=== PATIENT | female | born 1990 | race Hispanic/Latino ===

== ENCOUNTER 2019-12-10 12:53 | Emergency (ER) | payer MEDICAID ==
[~2019-12-10 12:53] MED LIST: LORA2TAB2 PO
== END 2019-12-10 13:32 | disposition home or self-care (01) ==
LOC: EDH 12:53
DX: F41.9 Anxiety disorder, unspecified (principal); Z04.1 Encounter for examination and observation following transport accident; Z88.1 Allergy status to other antibiotic agents; V69.09XA Driver of heavy transport vehicle injured in collision with other motor vehicles in nontraffic accident, initial encounter; Y93.89 Activity, other specified; Y92.89 Other specified places as the place of occurrence of the external cause; Y99.8 Other external cause status

== ENCOUNTER 2021-03-24 01:58 | Emergency (ER) | payer MEDICAID ==
[~2021-03-24] VITALS: Ht 152.4 cm; Wt 74.8 kg
[2021-03-24 02:28] LABS: APPEARANCE,URINE Cloudy (CLEAR); BILIRUBIN,URINE Negative (NEGATIVE); COLOR,URINE Yellow (YELLOW); GLUCOSE, URINE (UA) Negative (NEGATIVE); KETONES,URINE Negative (NEGATIVE); LEUKOCYTE ESTERASE ,URINE Trace (NEGATIVE); NITRATE,URINE Positive (NEGATIVE); OCCULT BLOOD,URINE Negative (NEGATIVE); PROTEIN,URINE Trace mg/dL (NEGATIVE)
[2021-03-24 02:30] LABS: HCG,QUAL RESULT NEGATIVE (NEGATIVE)
[2021-03-24 02:38] LABS: BACTERIA,URINE Many /HPF (None Seen); RBC,URINE 0-1 /HPF (0-1)
[2021-03-24 03:20] VITALS: BP 118/74
[2021-03-24] MEDS ORDERED: FAMO20TA8 PO (03:28)
[2021-03-24] MEDS ORDERED: ACET-66 PO (03:28)
[2021-03-24] MEDS ORDERED: FLUT16H NASAL (03:28)
== END 2021-03-24 03:43 | disposition home or self-care (01) ==
LOC: EDH 01:58
DX: U07.1 COVID-19 (principal); J45.909 Unspecified asthma, uncomplicated; Z79.899 Other long term (current) drug therapy; Z90.49 Acquired absence of other specified parts of digestive tract
CPT/HCPCS: 81001; 81025; 87077; 87088; 87186; 87635; 87804 ×2; 87880; 99283; C9803

== ENCOUNTER 2021-10-13 02:25 | Emergency (ER) | payer MEDICAID ==
[~2021-10-13] VITALS: Ht 152.4 cm; Wt 86.2 kg
[~2021-10-13 02:25] MED LIST changes: +ACET-66 PO; +FAMO20TA8 PO; +FLUT16H NASAL
[2021-10-13] MEDS ORDERED: DiphenhydrAMINE HCL 50 MG/ML VIAL IV ONE ×2 (03:00→04:30)
[2021-10-13] MEDS ORDERED: ONDANSETRON 4MG INJ IVP ONE (03:00)
[2021-10-13] MEDS ORDERED: 0.9%NACL 1000ML 1,000 ML IV ONE (03:00)
[2021-10-13 03:32] LABS: BASOPHILS % (AUTO) 0.4 % (0.0-5.0); EOSINOPHILS % (AUTO) 2.3 % (0.0-8.0); HEMATOCRIT 45.2 % (36-48); LYMPHOCYTES % (AUTO) 14.9 % (21.0-51.0); MEAN CORPUSCULAR HEMOGLOBIN 32.2 pg (27.0-33.0); MEAN CORPUSCULAR HGB CONC 33.6 g/dL (32.0-36.0); MEAN CORPUSCULAR VOLUME 95.8 fL (79-99); MONOCYTES % (AUTO) 12.7 % (3.0-13.0); NEUTROPHILS % (AUTO) 69.1 % (40.0-77.0); PLATELET COUNT (AUTO) 165 K/uL (130-400); RED BLOOD CELL COUNT(AUTO) 4.72 MIL/uL (4.00-5.50); RED CELL DISTRIBUTION WIDTH 11.7 % (11.0-15.5); WHITE BLOOD COUNT (AUTO) 7.8 K/uL (4.8-10.8)
[2021-10-13 03:41] LABS: APPEARANCE,URINE CLEAR (CLEAR); BILIRUBIN,URINE NEGATIVE (NEGATIVE); COLOR,URINE YELLOW (YELLOW); GLUCOSE, URINE (UA) NEGATIVE (NEGATIVE); KETONES,URINE NEGATIVE (NEGATIVE); LEUKOCYTE ESTERASE ,URINE NEGATIVE (NEGATIVE); NITRATE,URINE POSITIVE (NEGATIVE); OCCULT BLOOD,URINE SMALL (NEGATIVE); PROTEIN,URINE NEGATIVE (NEGATIVE); UROBILINOGEN,URINE 0.2 mg/dL (0.2-1.0)
[2021-10-13 03:42] LABS: CREATININE 0.9 mg/dL (0.5-1.5); POTASSIUM 3.9 mmol/L (3.5-5.1)
[2021-10-13 03:47] LABS: ALBUMIN 3.7 g/dL (3.5-5.0); TOTAL PROTEIN, SERUM 7.2 g/dL (6.0-8.3)
[2021-10-13 03:49] LABS: BACTERIA,URINE Many /HPF (None Seen); CALCIUM OXALATE CRYSTALS,UR Few /LPF (None Seen); MUCUS,URINE Many LPF (None Seen); RBC,URINE None Seen /HPF (0-1); SQUAMOUS EPITHELIAL CELL,UR Few /HPF (0-2)
[2021-10-13 03:50] LABS: HCG,QUALITATIVE URINE NEGATIVE (NEGATIVE)
[2021-10-13] MEDS ORDERED: ACETAMINOPHEN 500 MG TABLET ONE (04:14)
[2021-10-13 04:29] VITALS: BP 116/81
[2021-10-13] MEDS ORDERED: ACETAMINOPHEN 500 MG TABLET PO ONE (04:30)
[2021-10-13] MEDS ORDERED: NITROFURANTOIN MONOHYD/M-CRYST 100 MG CAPSULE PO ONE (04:30)
[2021-10-13] MEDS ORDERED: ONDA4TAB10 PO (04:36)
[2021-10-13] MEDS ORDERED: MACR100 PO (04:36)
== END 2021-10-13 05:00 | disposition home or self-care (01) ==
LOC: EDH 02:25
DX: U07.1 COVID-19 (principal); N39.0 Urinary tract infection, site not specified; E86.9 Volume depletion, unspecified; J45.909 Unspecified asthma, uncomplicated
CPT/HCPCS: 36415; 80053; 81001; 81025; 85025; 87077; 87088; 87186; 87635; 87804; 87880; 96361; 96374; 96375; 96376; C9803; J1200; J2405; J7030

== ENCOUNTER 2021-10-18 03:07 | Emergency (ER) | payer MEDICAID ==
[~2021-10-18] VITALS: Ht 149.9 cm; Wt 85.7 kg
[~2021-10-18 03:07] MED LIST changes: +MACR100 PO; +ONDA4TAB10 PO
[2021-10-18] MEDS ORDERED: ONDANSETRON 4MG INJ IVP ONE (03:30)
[2021-10-18] MEDS ORDERED: 0.9%NACL 1000ML 1,000 ML IV ONE (03:30)
[2021-10-18] MEDS ORDERED: DiphenhydrAMINE HCL 50 MG/ML VIAL IV ONE (03:30)
[2021-10-18] MEDS ORDERED: IBUP-2070 PO (03:37)
[2021-10-18] MEDS ORDERED: ONDA-104 PO (03:37)
[2021-10-18] MEDS ORDERED: METH4TAB3 PO (03:37)
[2021-10-18] MEDS ORDERED: D-ME118S47 PO (03:37)
[2021-10-18 03:52] LABS: BASOPHILS % (AUTO) 0.5 % (0.0-5.0); EOSINOPHILS % (AUTO) 2.6 % (0.0-8.0); HEMATOCRIT 44.5 % (36-48); LYMPHOCYTES % (AUTO) 37.8 % (21.0-51.0); MEAN CORPUSCULAR HEMOGLOBIN 32.5 pg (27.0-33.0); MEAN CORPUSCULAR HGB CONC 34.2 g/dL (32.0-36.0); MEAN CORPUSCULAR VOLUME 95.1 fL (79-99); MONOCYTES % (AUTO) 6.8 % (3.0-13.0); NEUTROPHILS % (AUTO) 51.8 % (40.0-77.0); PLATELET COUNT (AUTO) 197 K/uL (130-400); RED BLOOD CELL COUNT(AUTO) 4.68 MIL/uL (4.00-5.50); RED CELL DISTRIBUTION WIDTH 11.6 % (11.0-15.5); WHITE BLOOD COUNT (AUTO) 8.7 K/uL (4.8-10.8)
[2021-10-18] MEDS ORDERED: GUAIFENESIN-CODEINE 5 ML SYRUP ONE (04:01)
[2021-10-18 04:23] VITALS: BP 129/63
[2021-10-18 04:26] LABS: CREATININE 0.9 mg/dL (0.5-1.5); POTASSIUM 3.7 mmol/L (3.5-5.1)
[2021-10-18 04:30] LABS: ALBUMIN 3.9 g/dL (3.5-5.0); TOTAL PROTEIN, SERUM 6.8 g/dL (6.0-8.3)
[2021-10-18] MEDS ORDERED: GUAIFENESIN-DM 200/20 MG 10 ML PO ONE (04:30)
== END 2021-10-18 05:12 | disposition home or self-care (01) ==
LOC: EDH 03:07
DX: U07.1 COVID-19 (principal); E86.9 Volume depletion, unspecified; J45.909 Unspecified asthma, uncomplicated
CPT/HCPCS: 99284; 96374; 87635; 96375; 83735; 80053; 85025; 36415; C9803; J1200; J2405

== ENCOUNTER 2021-12-02 23:35 | Emergency (ER) | payer MEDICAID ==
[~2021-12-02] VITALS: Ht 152.4 cm; Wt 90.7 kg
[~2021-12-02 23:35] MED LIST changes: +D-ME118S47 PO; +IBUP-2070 PO; +METH4TAB3 PO; +ONDA-104 PO
[2021-12-03] MEDS ORDERED: ONDANSETRON 4MG INJ IVP ONE (03:30)
[2021-12-03] MEDS ORDERED: FAMOTIDINE 20MG VIAL IV ONE (03:30)
[2021-12-03] MEDS ORDERED: SOLU-MEDROL 125MG VIAL IVP ONE (03:30)
[2021-12-03] MEDS ORDERED: DiphenhydrAMINE HCL 50 MG/ML VIAL IV ONE (03:30)
[2021-12-03 04:47] VITALS: BP 145/65
== END 2021-12-03 05:11 | disposition home or self-care (01) ==
LOC: EDH 23:35
DX: L50.0 Allergic urticaria (principal); J06.9 Acute upper respiratory infection, unspecified; M76.52 Patellar tendinitis, left knee; F41.9 Anxiety disorder, unspecified; Z20.822 Contact with and (suspected) exposure to COVID-19; G43.909 Migraine, unspecified, not intractable, without status migrainosus; I10 Essential (primary) hypertension; Z79.1 Long term (current) use of non-steroidal anti-inflammatories (NSAID); Z79.52 Long term (current) use of systemic steroids; Z79.899 Other long term (current) drug therapy; Z90.49 Acquired absence of other specified parts of digestive tract
CPT/HCPCS: 99284; 87635; 87804 ×2; 81025; 96374; 96375; 73562; C9803; J1200; J2930; J2405; S0028; J3490

== ENCOUNTER 2022-04-27 17:00 | Emergency (ER) | payer MEDICAID ==
[~2022-04-27] VITALS: Ht 152.4 cm; Wt 80.7 kg
[~2022-04-27 17:00] MED LIST changes: +METO10TA41 PO; +OMEP40CA21 PO
[2022-04-27 17:32] VITALS: BP 110/65
[2022-04-27 18:47] LABS: BASOPHILS % (AUTO) 0.7 % (0.0-5.0); EOSINOPHILS % (AUTO) 3.6 % (0.0-8.0); HEMATOCRIT 44.4 % (36-48); LYMPHOCYTES % (AUTO) 23.7 % (21.0-51.0); MEAN CORPUSCULAR HEMOGLOBIN 32.2 pg (27.0-33.0); MEAN CORPUSCULAR HGB CONC 32.7 g/dL (32.0-36.0); MEAN CORPUSCULAR VOLUME 98.4 fL (79-99); MONOCYTES % (AUTO) 11.7 % (3.0-13.0); NEUTROPHILS % (AUTO) 59.7 % (40.0-77.0); PLATELET COUNT (AUTO) 187 K/uL (130-400); RED BLOOD CELL COUNT(AUTO) 4.51 MIL/uL (4.00-5.50); RED CELL DISTRIBUTION WIDTH 11.9 % (11.0-15.5); WHITE BLOOD COUNT (AUTO) 6.7 K/uL (4.8-10.8)
[2022-04-27 18:56] LABS: CREATININE 0.8 mg/dL (0.5-1.5); POTASSIUM 4.6 mmol/L (3.5-5.1)
[2022-04-27 19:01] LABS: ALBUMIN 3.5 g/dL (3.5-5.0); TOTAL PROTEIN, SERUM 7.1 g/dL (6.0-8.3)
== END 2022-04-27 20:32 | disposition left against medical advice (07) ==
LOC: EDH 17:00
DX: R10.13 Epigastric pain (principal); R11.2 Nausea with vomiting, unspecified; M79.10 Myalgia, unspecified site; F41.9 Anxiety disorder, unspecified; J45.909 Unspecified asthma, uncomplicated; M19.90 Unspecified osteoarthritis, unspecified site
CPT/HCPCS: 36415; 80053; 85025; 86850; 86900; 86901

== ENCOUNTER → 2022-05-12 | Outpatient (CLI) | payer MEDICAID | END | disposition home or self-care (01) | LOC: RAH 10:46 | PROVIDERS: ATTEND Internal Medicine | DX: R93.3 Abnormal findings on diagnostic imaging of other parts of digestive tract (principal); R11.0 Nausea | CPT/HCPCS: 78264; A9541 ==